=== PATIENT | male | born 1965 | race Caucasian/White ===

== ENCOUNTER 2023-02-04 23:22 | Emergency (ER) | payer MEDICARE, MEDICAID ==
[2023-02-05 00:01] LABS: BASOPHILS ABSOLUTE AUTO 0.01 K/mm3 (0.01-0.08); BASOPHILS PERCENT AUTO 0.2 % (0.1-1.2); EOSINOPHILS ABSOLUTE AUTO 0.19 K/mm3 (0.04-0.54); HEMATOCRIT 35.8 % (40.1-51.0); HEMOGLOBIN 11.4 gm/dl (13.7-17.5); IMMATURE GRAN ABSOLUTE AUTO 0.01 K/mm3 (0.00-0.10); IMMATURE GRAN PERCENT AUTO 0.2 % (<=1.0); LYMPHOCYTES ABSOLUTE AUTO 1.25 K/mm3 (1.32-3.57); LYMPHOCYTES PERCENT AUTO 19.9 % (21.8-53.1); MEAN CORPUSCULAR HEMOGLOBIN 26.5 pg (25.7-32.2); MEAN CORPUSCULAR HGB CONC 31.8 g/dl (32.2-35.5); MEAN CORPUSCULAR VOLUME 83.1 fl (79.0-92.2); MEAN PLATELET VOLUME 9.2 fl (9.4-12.3); MONOCYTES ABSOLUTE AUTO 0.69 K/mm3 (0.30-0.82); NEUTROPHILS ABSOLUTE AUTO 4.12 K/mm3 (1.78-5.38); NEUTROPHILS PERCENT AUTO 65.7 % (34.0-67.9); PLATELET COUNT,PLT 212 K/mm3 (163-337); RED BLOOD CELL COUNT 4.31 M/mm3 (4.63-6.08); WHITE BLOOD CELL COUNT,WBC 6.27 K/mm3 (4.23-9.07)
[2023-02-05 00:23] LABS: ALANINE AMINOTRANSFERASE,ALT 37 U/L (16-63); ALKALINE PHOSPHATASE 51 U/L (46-116); ANION GAP 15.6 (5-15); ASPARTATE AMNIOTRANSFERASE,AST 20 U/L (15-37); BILIRUBIN TOTAL 0.3 mg/dL (0.2-1.0); BLOOD UREA NITROGEN,BUN 14 mg/dL (7-18); CALCIUM 8.5 mg/dL (8.5-10.1); CARBON DIOXIDE,CO2 20 mEq/L (21-32); CHLORIDE,CL 105 mEq/L (98-107); ESTIMATED GFR 89 mL/min (>60); GLUCOSE RANDOM 164 mg/dL (70-99); POTASSIUM,K 3.6 mEq/L (3.5-5.1); PROTEIN TOTAL,TP 6.1 g/dl (6.4-8.2); SODIUM,NA 137 mEq/L (136-145)
[2023-02-05 01:30] LABS: APPEARANCE,URINE CLEAR (Clear); BILIRUBIN,URINE NEGATIVE (Negative); COLOR,URINE YELLOW (Yellow); GLUCOSE,URINE NEGATIVE (Negative); KETONES,URINE NEGATIVE (Negative); LEUKOCYTE ESTERASE,URINE NEGATIVE (Negative); NITRITE,URINE NEGATIVE (Negative); OCCULT BLOOD,URINE NEGATIVE (Negative); PH,URINE 6.5 (5.0-8.0); PROTEIN,URINE NEGATIVE (Negative); UROBILINOGEN,URINE 0.2 (0.2-1.0)
[2023-02-05 01:42] LABS: RBC,URINE NOT SEEN /hpf (0-5); WBC,URINE 0-5 /hpf (0-5)
[2023-02-05 01:43] LABS: BACTERIA,URINE NOT SEEN /hpf (FEW); EPITHELIAL CELLS,URINE NOT SEEN /hpf (0-5); MUCUS,URINE RARE /hpf (FEW)
== END 2023-02-05 03:52 | disposition home or self-care (01) ==
LOC: JD.ED 23:22
DX: R53.83 Other fatigue (principal)
CPT/HCPCS: 36415; 80053; 81001; 82947; 85025; 99284

== ENCOUNTER 2024-08-28 13:18 | Emergency (ER) | payer MEDICARE, OTHER ==
[2024-08-28] MEDS ORDERED: Sodium Chloride 0.9% 10 ML Syringe FLUSH PRN (13:46)
[2024-08-28 13:59] LABS: BASOPHILS PERCENT AUTO 0.2 % (0.0-1.0); EOSINOPHILS ABSOLUTE AUTO 0.2 K/mm3 (0.0-0.4); EOSINOPHILS PERCENT AUTO 1.6 % (0.0-6.0); HEMATOCRIT 36.1 % (42.0-52.0); HEMOGLOBIN 11.5 gm/dl (14.0-18.0); IMMATURE GRAN ABSOLUTE AUTO 0.03 K/mm3 (0.00-0.05); IMMATURE GRAN PERCENT AUTO 0.3 % (0.0-0.4); LYMPHOCYTES ABSOLUTE AUTO 1.5 K/mm3 (1.0-4.8); LYMPHOCYTES PERCENT AUTO 15.1 % (24.0-44.0); MEAN CORPUSCULAR HEMOGLOBIN 27.6 pg (28.0-32.0); MEAN CORPUSCULAR HGB CONC 31.9 g/dl (32.0-36.0); MEAN CORPUSCULAR VOLUME 86.6 fl (83.0-99.0); MEAN PLATELET VOLUME 9.9 fl (9.4-12.4); MONOCYTES ABSOLUTE AUTO 0.7 K/mm3 (0.0-0.8); MONOCYTES PERCENT AUTO 7.4 % (0.0-8.0); NEUTROPHILS ABSOLUTE AUTO 7.6 K/mm3 (1.8-7.7); NEUTROPHILS PERCENT AUTO 75.4 % (41.0-71.0); PLATELET COUNT,PLT 207 K/mm3 (150-400); RED BLOOD CELL COUNT 4.17 M/mm3 (4.52-5.90); WHITE BLOOD CELL COUNT,WBC 10.06 K/mm3 (3.9-11.3)
[2024-08-28] MEDS: Sodium Chloride 0.9% 500 ML IV ONE (14:02)
[2024-08-28 14:28] LABS: LACTIC ACID 2.2 mmol/L (0.4-2.0)
[2024-08-28 14:33] LABS: A/G RATIO 0.9 (1-2); ALANINE AMINOTRANSFERASE,ALT 90 U/L (16-63); ALBUMIN 3.2 g/dl (3.4-5.0); ALKALINE PHOSPHATASE 78 U/L (46-116); ANION GAP 16.1 (5-15); ASPARTATE AMNIOTRANSFERASE,AST 36 U/L (15-37); BILIRUBIN TOTAL 0.6 mg/dL (0.2-1.0); BLOOD UREA NITROGEN,BUN 22 mg/dL (7-18); CALCIUM 8.9 mg/dL (8.5-10.1); CARBON DIOXIDE,CO2 22 mEq/L (21-32); CHLORIDE,CL 104 mEq/L (98-107); CREATININE 1.1 mg/dL (0.7-1.3); ESTIMATED GFR 79 mL/min (>60); GLUCOSE RANDOM 268 mg/dL (70-99); LIPASE 9 U/L (16-77); MAGNESIUM 1.5 mg/dL (1.8-2.4); POTASSIUM,K 4.1 mEq/L (3.5-5.1); PROTEIN TOTAL,TP 6.6 g/dl (6.4-8.2); SODIUM,NA 138 mEq/L (136-145); TROPONIN I HIGH SENSITIVITY 4 pg/mL (<=76); TSH 1.429 uIU/mL (0.358-3.74)
[2024-08-28 16:16] LABS: APPEARANCE,URINE CLEAR (Clear); BILIRUBIN,URINE NEGATIVE (Negative); COLOR,URINE YELLOW (Yellow); GLUCOSE,URINE 2+ (Negative); KETONES,URINE 1+ (Negative); LEUKOCYTE ESTERASE,URINE NEGATIVE (Negative); NITRITE,URINE NEGATIVE (Negative); OCCULT BLOOD,URINE NEGATIVE (Negative); PH,URINE 6.5 (5.0-8.0); PROTEIN,URINE 2+ (Negative)
[2024-08-28 17:36] LABS: CORONAVIRUS COVID-19 NAA NEGATIVE (NEGATIVE)
[2024-08-28 17:37] LABS: INFLUENZA A NAA NEGATIVE (NEGATIVE)
[2024-08-28 18:06] LABS: RESPIRATORY SYNCYTIAL VIR NAA NEGATIVE (NEGATIVE)
[2024-08-28 18:18] LABS: BACTERIA,URINE FEW /hpf (FEW); EPITHELIAL CELLS,URINE 0-5 /hpf (0-5); MUCUS,URINE MODERATE /hpf (FEW); RBC,URINE 0-5 /hpf (0-5); RENAL EPITHELIAL CELLS,URINE 0-5 /hpf (0-5); WBC,URINE 0-5 /hpf (0-5)
[2024-08-28] MEDS: cefTRIAXone 1 GM in Sodium Chloride 0.9% 50 ML IV ONE (18:31)
== END 2024-08-28 20:00 ==
LOC: JD.ED 13:18
DX: G93.40 Encephalopathy, unspecified (principal); R33.9 Retention of urine, unspecified; J45.909 Unspecified asthma, uncomplicated; E11.9 Type 2 diabetes mellitus without complications; Z86.16 Personal history of COVID-19; E03.9 Hypothyroidism, unspecified; Z88.5 Allergy status to narcotic agent; Z88.6 Allergy status to analgesic agent
CPT/HCPCS: 0241U; 36415; 51702; 70450; 71045; 80053; 81001; 83605; 83690; 83735; 84443; 84484; 85025; 87040; 87154; 93005; 96361; 96365; 99285; C1758; J0696; J3490; J7030

== ENCOUNTER 2024-09-01 12:58 | Inpatient (IN) | payer MEDICARE, MEDICAID ==
[2024-09-01] MEDS ORDERED: Sodium Chloride 0.9% 10 ML Syringe FLUSH PRN (13:27)
[2024-09-01] MEDS: Sodium Chloride 0.9% 500 ML IV ONE (14:18)
[2024-09-01 14:34] LABS: BASOPHILS PERCENT AUTO 0.3 % (0.0-1.0); EOSINOPHILS ABSOLUTE AUTO 0.2 K/mm3 (0.0-0.4); EOSINOPHILS PERCENT AUTO 1.3 % (0.0-6.0); HEMATOCRIT 34.8 % (42.0-52.0); HEMOGLOBIN 11.8 gm/dl (14.0-18.0); IMMATURE GRAN ABSOLUTE AUTO 0.05 K/mm3 (0.00-0.05); IMMATURE GRAN PERCENT AUTO 0.4 % (0.0-0.4); LYMPHOCYTES PERCENT AUTO 17.1 % (24.0-44.0); MEAN CORPUSCULAR HEMOGLOBIN 27.7 pg (28.0-32.0); MEAN CORPUSCULAR HGB CONC 33.9 g/dl (32.0-36.0); MEAN CORPUSCULAR VOLUME 81.7 fl (83.0-99.0); MEAN PLATELET VOLUME 10.8 fl (9.4-12.4); MONOCYTES ABSOLUTE AUTO 0.9 K/mm3 (0.0-0.8); MONOCYTES PERCENT AUTO 7.8 % (0.0-8.0); NEUTROPHILS ABSOLUTE AUTO 8.7 K/mm3 (1.8-7.7); NEUTROPHILS PERCENT AUTO 73.1 % (41.0-71.0); PLATELET COUNT,PLT 232 K/mm3 (150-400); RED BLOOD CELL COUNT 4.26 M/mm3 (4.52-5.90); WHITE BLOOD CELL COUNT,WBC 11.82 K/mm3 (3.9-11.3)
[2024-09-01 15:05] LABS: LACTIC ACID 1.4 mmol/L (0.4-2.0)
[2024-09-01 15:09] LABS: A/G RATIO 0.8 (1-2); ALBUMIN 2.9 g/dl (3.4-5.0); ANION GAP 15.1 (5-15); BILIRUBIN TOTAL 0.5 mg/dL (0.2-1.0); BUN/CREATININE RATIO 26.7 (14-18); CALCIUM 8.8 mg/dL (8.5-10.1); CREATININE 0.9 mg/dL (0.7-1.3); EST CRCL DRUG DOSING (CG) 100.59 mL/min; MAGNESIUM 1.5 mg/dL (1.8-2.4); POTASSIUM,K 4.1 mEq/L (3.5-5.1); PROTEIN TOTAL,TP 6.4 g/dl (6.4-8.2); TSH 1.549 uIU/mL (0.358-3.74)
[2024-09-01] MEDS: cefTRIAXone 1 GM in Sodium Chloride 0.9% 50 ML IV ONE (17:08)
[2024-09-01 17:14] LABS: APPEARANCE,URINE CLEAR (Clear); BILIRUBIN,URINE 1+ (Negative); COLOR,URINE YELLOW (Yellow); GLUCOSE,URINE 1+ (Negative); KETONES,URINE TRACE (Negative); LEUKOCYTE ESTERASE,URINE NEGATIVE (Negative); NITRITE,URINE NEGATIVE (Negative); OCCULT BLOOD,URINE 2+ (Negative); PROTEIN,URINE 3+ (Negative)
[2024-09-01 17:15] LABS: CORONAVIRUS COVID-19 NAA NEGATIVE (NEGATIVE); INFLUENZA A NAA NEGATIVE (NEGATIVE); RESPIRATORY SYNCYTIAL VIR NAA NEGATIVE (NEGATIVE)
[2024-09-01 17:56] LABS: BACTERIA,URINE MODERATE /hpf (FEW); MUCUS,URINE MODERATE /hpf (FEW); RBC,URINE 40-50 /hpf (0-5); SQUAMOUS EPITHELIAL CELLS,UR 0-5 /hpf (0-5); WBC,URINE 0-5 /hpf (0-5)
[2024-09-01] MEDS ORDERED: Acetaminophen 325 MG Tab PO PRN (20:39)
[2024-09-01] MEDS ORDERED: Glucagon,Human Recombinant 1 MG Vial IM PRN (20:40)
[2024-09-01] MEDS ORDERED: 50% Dextrose in Water 50 ML Syringe IVPUSH PRN (20:40)
[2024-09-01] MEDS: Insulin Lispro 100 Unit/ML 3 ML KwikPen SUBCUT SCH (22:28)
[2024-09-02] MEDS: Insulin Lispro 100 Unit/ML 3 ML KwikPen SUBCUT SCH (05:24)
[2024-09-02] MEDS ORDERED: Bisacodyl 5 MG Tab PO PRN (06:42)
[2024-09-02] MEDS: OLANZapine 5 MG Tab PO SCH (09:38)
[2024-09-02] MEDS: QUEtiapine 100 MG Tab PO SCH (09:38)
[2024-09-02] MEDS: buPROPion 150 MG Tab.ER PO SCH (09:39)
[2024-09-02] MEDS: Metoprolol Succinate 50 MG Tab.ER PO SCH (09:39)
[2024-09-02] MEDS: cloZAPine 100 MG Tab PO SCH (09:40)
[2024-09-02] MEDS: Levothyroxine 75 MCG Tab PO SCH (09:40)
[2024-09-02] MEDS: Enoxaparin 40 MG/0.4 ML Syringe SUBCUT SCH (09:40)
[2024-09-02] MEDS: Glycopyrrolate 1 MG Tab PO SCH (09:40)
[2024-09-02] MEDS ORDERED: cefTRIAXone 2 GM in Sodium Chloride 0.9% 100 ML IV SCH (16:00)
[2024-09-02] MEDS ORDERED: cefTRIAXone 2 GM Vial IV SCH (16:00)
[2024-09-02] MEDS ORDERED: cloZAPine 100 MG Tab PO SCH (21:00)
[2024-09-02] MEDS ORDERED: lamoTRIgine 100 MG Tab PO SCH (21:00)
[2024-09-02] MEDS ORDERED: Lithium Carbonate 300 MG Tab.ER PO SCH (21:00)
[2024-09-02] MEDS ORDERED: Rosuvastatin 10 MG Tab PO SCH (21:00)
[2024-09-02] MEDS ORDERED: OLANZapine 5 MG Tab PO SCH (21:00)
[2024-09-02] MEDS ORDERED: QUEtiapine 100 MG Tab PO SCH (21:00)
== END 2024-09-02 13:38 | DRG 948 ==
LOC: JD.ED 12:58 → JD.MS 20:37 → OBSVTOIN 09-02 05:42
PROVIDERS: ADMIT Internal Medicine; ATTEND Internal Medicine
DX: R41.82 Altered mental status, unspecified (principal); F02.84 Dementia in other diseases classified elsewhere, unspecified severity, with anxiety; G93.40 Encephalopathy, unspecified; R91.8 Other nonspecific abnormal finding of lung field; N39.0 Urinary tract infection, site not specified; Z66 Do not resuscitate; Z88.5 Allergy status to narcotic agent; Z88.6 Allergy status to analgesic agent; G30.9 Alzheimer's disease, unspecified; I10 Essential (primary) hypertension; J45.909 Unspecified asthma, uncomplicated; K59.09 Other constipation; F41.9 Anxiety disorder, unspecified; E03.9 Hypothyroidism, unspecified; F31.9 Bipolar disorder, unspecified; E83.42 Hypomagnesemia; E11.65 Type 2 diabetes mellitus with hyperglycemia; N31.9 Neuromuscular dysfunction of bladder, unspecified; Z88.8 Allergy status to other drugs, medicaments and biological substances; Z51.5 Encounter for palliative care; Z79.899 Other long term (current) drug therapy; Z79.4 Long term (current) use of insulin; Z79.84 Long term (current) use of oral hypoglycemic drugs; Z86.16 Personal history of COVID-19
CPT/HCPCS: 0241U; 36415; 51702; 70450; 71045; 72125; 80053; 81001; 82140; 82947; 83605; 83690; 83735; 83880; 84443; 84484; 85025; 87040; 93005; 96361; 96365; 99285; 93010; 96372; 99222; A9270-GY; G0378; J0696; J1650; J1815; J3490; J7030